=== PATIENT | female | born 1995 | race Caucasian/White ===

== ENCOUNTER → 2023-12-02 11:04 | Outpatient (REF) | payer OTHER, SELFPAY | LOC: PNTC 11:04 | PROVIDERS: ATTENDING PHYSICIAN Obstetrics & Gynecology | DX: Z34.90 Encounter for supervision of normal pregnancy, unspecified, unspecified trimester (principal) | CPT/HCPCS: 76801 ==

== ENCOUNTER → 2023-12-15 13:18 | Outpatient (REF) | payer OTHER, SELFPAY | LOC: PNTC 13:18 | PROVIDERS: ATTENDING PHYSICIAN Obstetrics & Gynecology | DX: Z36.0 Encounter for antenatal screening for chromosomal anomalies (principal); Z36.82 Encounter for antenatal screening for nuchal translucency | CPT/HCPCS: 76801; 76813 ==

== ENCOUNTER → 2024-02-08 10:20 | Outpatient (REF) | payer OTHER, SELFPAY | LOC: PNTC 10:20 | PROVIDERS: ATTENDING PHYSICIAN Obstetrics & Gynecology | DX: O09.819 Supervision of pregnancy resulting from assisted reproductive technology, unspecified trimester (principal) | CPT/HCPCS: 76811 ==

== ENCOUNTER → 2024-03-21 08:30 | Outpatient (REF) | payer OTHER, SELFPAY | LOC: PNTC 08:30 | PROVIDERS: ATTENDING PHYSICIAN Obstetrics & Gynecology | DX: Z36.0 Encounter for antenatal screening for chromosomal anomalies (principal); O09.819 Supervision of pregnancy resulting from assisted reproductive technology, unspecified trimester | CPT/HCPCS: 76816 ==

== ENCOUNTER → 2024-05-03 08:49 | Outpatient (REF) | payer OTHER, SELFPAY | LOC: PNTC 08:49 | PROVIDERS: ATTENDING PHYSICIAN Obstetrics & Gynecology | DX: O09.819 Supervision of pregnancy resulting from assisted reproductive technology, unspecified trimester (principal) | CPT/HCPCS: 76816 ==

== ENCOUNTER → 2024-05-30 10:15 | Outpatient (REF) | payer OTHER, SELFPAY | LOC: PNTC 10:15 | PROVIDERS: ATTENDING PHYSICIAN Obstetrics & Gynecology | DX: O09.819 Supervision of pregnancy resulting from assisted reproductive technology, unspecified trimester (principal) | CPT/HCPCS: 59025; 76816 ==

== ENCOUNTER → 2024-06-06 10:15 | Outpatient (REF) | payer OTHER, SELFPAY | LOC: PNTC 10:15 | PROVIDERS: ATTENDING PHYSICIAN Obstetrics & Gynecology | DX: O09.819 Supervision of pregnancy resulting from assisted reproductive technology, unspecified trimester (principal) | CPT/HCPCS: 59025; 76815 ==

== ENCOUNTER → 2024-06-13 10:23 | Outpatient (REF) | payer OTHER, SELFPAY | LOC: PNTC 10:23 | PROVIDERS: ATTENDING PHYSICIAN Obstetrics & Gynecology | DX: O09.819 Supervision of pregnancy resulting from assisted reproductive technology, unspecified trimester (principal) | CPT/HCPCS: 59025; 76815 ==

== ENCOUNTER → 2024-06-20 10:14 | Outpatient (REF) | payer OTHER, SELFPAY | LOC: PNTC 10:14 | PROVIDERS: ATTENDING PHYSICIAN Obstetrics & Gynecology | DX: O09.819 Supervision of pregnancy resulting from assisted reproductive technology, unspecified trimester (principal) | CPT/HCPCS: 59025; 76815 ==

== ENCOUNTER 2024-06-25 08:50 | Observation (INO) | payer OTHER, SELFPAY ==
[2024-06-25 09:00] VITALS: BP 128/88; BMI 29.9
[2024-06-25] MEDS: LR 1000 IV (09:46)
[2024-06-25] MEDS: ZOFRAN 4 MG IV (09:46)
[2024-06-25] MEDS: IMODIUM 4 MG PO (09:46)
== END 2024-06-25 11:56 | disposition home or self-care (01) ==
LOC: LDRP 08:50
PROVIDERS: ADMITTING PHYSICIAN Obstetrics & Gynecology
DX: R11.2 Nausea with vomiting, unspecified (principal); R19.7 Diarrhea, unspecified; Z3A.40 40 weeks gestation of pregnancy
CPT/HCPCS: 76815; G0378

== ENCOUNTER 2024-06-27 05:15 | Inpatient (IN) | payer OTHER, SELFPAY ==
[2024-06-27] VITALS (8 sets, daily range): BP systolic 97–134; BP diastolic 49–93; BMI 30.8
[2024-06-27 06:15] LABS: Cord ABG Comment CORD BLOOD
[2024-06-27 06:18] LABS: B.E. Cord ABG -8.1 mMOL/L; HCO3 Cord ABG 17.8 mmol/L; PCO2 Cord ABG 37 mmHg; PO2 Cord ABG 32 mmHg; pH Cord ABG 7.29
[2024-06-27 06:22] LABS: B.E. Cord ABG -8.3 mMOL/L; HCO3 Cord ABG 18.4 mmol/L; O2 Saturation % Cord ABG 45.6 %; PCO2 Cord ABG 41 mmHg; PO2 Cord ABG 20 mmHg; pH Cord ABG 7.26
--- NOTE | 2024-06-27 07:19 | W.IMMPOSTOP ---
Surgical Immed Post Op Note
-
Primary Surgeon: Margot Abraham DO
Assisting Surgeon: Iona Bowen RN
Pre-op Diagnosis: IUP at 40+3wks, early labor, NRFHT
Post-op Diagnosis: s/p emergent PLTCS
Procedure Performed: emergent PLTCS
Anesthesia Type: GETA
Specimen / Cultures: cord gases: 7.26, BE -8.3 and 7.29, BE -81; placenta to pathology
Estimated Blood Loss: 530ml
Complications: none
Operative Findings: normal uterus, tubes and ovaries. Male infant, cephalic, no nuchal cord, Apgars 8/9, weight 7#14oz, clear amniotic fluid. Placenta intact with multiple calcifications, no gross e/o abruption.
Due to emergent nature of the surgery, sterility was imperfect and antibiotics were not given prior to incision, so IV antibiotics will be continued 24hrs postoperatively for prophylaxis. Also, counts were not done so abdominal US was done after
fascial closure and did not appear to have any retained products within the peritoneal cavity.
Miles Abraham DO
[2024-06-27] MEDS: DILAUDID 0.25 MG IV (07:25)
[2024-06-27] MEDS: LR 1000 IV (07:31)
[2024-06-27 07:44] LABS: Hemoglobin 12.4 g/dL (12.0-16.0); Mean Corp Hgb Conc. 36.5 g/dL (33.0-37.0); Mean Corpuscular Hgb 34.7 pg (27.0-31.0); Mean Corpuscular Volume 95.2 fL (81.0-99.0); Mean Platelet Volume 13.2 fL (7.4-10.4); Platelet Count 208 10^3/uL (130-400); Red Blood Cell Count 3.57 10^6/uL (4.20-5.40); Red Cell Dist. Width 12.8 % (11.5-14.5); White Blood Cell Count 13.3 10^3/uL (4.8-10.8)
--- NOTE | 2024-06-27 08:03 | W.PN.ANS.POP ---
Anesthesia Post Operative
- Anesthesia Post Op Note
Vital Signs Stable-See Nursing Note: Yes
Airway Patent: Yes
Adequate Pain Control: Yes
Change in Mental Status: No
Current Postoperative Nausea & Vomiting: No
Anesthesia Complications: No
General Anesthetic Recall: No
Unplanned Admission: No
Post Op Hydration Adequate: Yes
[2024-06-27 09:19] LABS: Amphetamines Negative (Negative); Barbiturates Negative (Negative); Benzodiazepines Negative (Negative); Buprenorphine Negative (Negative); Cocaine Negative (Negative); Marijuana Negative (Negative); Methadone Negative (Negative); Methamphetamines Negative (Negative); Opiates Negative (Negative); Phencyclidine Negative (Negative); Tricyclic Antidepressants Negative (Negative)
[2024-06-27] MEDS: PITOCIN 30 UNITS/NSS 500 ML IV (09:54)
[2024-06-27] MEDS: TORADOL 15 MG IV ×2 (12:21→17:33)
[2024-06-27] MEDS: ANCEF 10 IV ×2 (14:06→22:14)
[2024-06-27] MEDS: PRENATAL PLUS PO (14:19)
[2024-06-27] MEDS: PROTONIX 40 MG PO (15:40)
[2024-06-27] MEDS: TUMS CHEWABLE TABLET 400 MG PO (17:56)
[2024-06-28] MEDS: TORADOL 15 MG IV ×2 (00:03→05:55)
[2024-06-28] MEDS: ANCEF 10 IV (05:55)
[2024-06-28 06:49] LABS: Hematocrit 25.8 % (37.0-47.0); Hemoglobin 9.2 g/dL (12.0-16.0); Mean Corp Hgb Conc. 35.7 g/dL (33.0-37.0); Mean Corpuscular Hgb 34.7 pg (27.0-31.0); Mean Corpuscular Volume 97.4 fL (81.0-99.0); Mean Platelet Volume 12.4 fL (7.4-10.4); Platelet Count 149 10^3/uL (130-400); Red Blood Cell Count 2.65 10^6/uL (4.20-5.40); Red Cell Dist. Width 13.2 % (11.5-14.5); White Blood Cell Count 15.9 10^3/uL (4.8-10.8)
[2024-06-28] MEDS: PROTONIX 40 MG PO (08:32)
[2024-06-28] MEDS: FEOSOL 325 MG PO (08:52)
[2024-06-28] MEDS: PRENATAL PLUS 1 TABLET PO (08:52)
[2024-06-28] MEDS: TYLENOL 650 MG PO ×2 (12:19→18:26)
[2024-06-28] MEDS: MOTRIN 600 MG PO ×2 (12:30→18:26)
[2024-06-28 12:38] LABS: Syphilis/T. pallidum Ab Reflex Negative (Negative)
[2024-06-29] MEDS: MOTRIN 600 MG PO ×3 (00:18→12:14)
[2024-06-29] MEDS: TYLENOL 650 MG PO ×3 (00:18→12:13)
[2024-06-29] MEDS: PROTONIX 40 MG PO (08:20)
[2024-06-29] MEDS: SENOKOT-S 1 TABLET PO (08:20)
[2024-06-29] MEDS: PRENATAL PLUS 1 TABLET PO (08:20)
[2024-06-29] MEDS: FEOSOL 325 MG PO (08:20)
--- NOTE | 2024-06-29 09:27 | W.DS.TRANS ---
DC Summary - [employer]
-
Discharge Instructions:
Discharge Diagnosis/Procedures s/p emergent primary low-transverse ;
anemia, asymptomatic
Instructions:
Stand-Alone Forms: [facility] Delivery
Changes to Home Medications: No
Discharge Medications:
DC Medications w/original date entered in [facility] (formerly known as [facility])
vitamin-ferrous fumarate 28 mg iron-folic acid 800 mcg tablet ( Tablet) 1 tab PO DAILY Supplement 06/27/24
acetaminophen 325 mg tablet 650 mg (2 x 325 mg) PO Q4HPRN PRN mild pain #0 tabs 06/29/24
ferrous sulfate 325 mg (65 mg iron) tablet (FeroSul) 325 mg PO DAILY #0 tabs 06/29/24
ibuprofen 600 mg tablet 600 mg PO Q6HPRN PRN cramps #60 tabs 06/29/24
oxycodone 5 mg tablet 5 mg PO Q4HPRN PRN pain rated 6-8/10 #5 tabs 06/29/24
vitamin with calcium no.72-iron 27 mg-folic acid 1 mg tablet (WesTab Plus) 1 tab PO DAILY #0 tabs 06/29/24
sennosides 8.6 mg-docusate sodium 50 mg tablet 1 tab PO DAILYPRN PRN constipation #0 tabs 06/29/24
Home Medication Changes
Pending Results: No
Total time spent discharging patient (in min): 20
--- NOTE | 2024-06-29 11:30 | W.DCSUMMARY ---
Documented by User: Ross Flores MD, Resident 06/29/24 12:42
Discharge Summary
Discharge Data
Date of Admission: 06/27/24
Date of Discharge: 06/29/24
-
Pending Results: No
Hospital Course
Discharge diagnoses:
* S/p emergent primary low-transverse
* Anemia, asymptomatic
Hospital course
29-year-old, G3, P-0-0-2-0 at 40+ 3 weeks presented to Labor and Delivery with painful contractions on 06-27-24. She was found to be in early labor and terminal heart rate deceleration, prolonged for 10 minutes. The patient was urgently taken
to the OR for primary low-transverse section for non-reassuring heart tracing. The went well and there were no significant post-op complications. Labs post-op were notable for anemia. She was feeling well after the procedure
and vitals remained unremarkable. She will be discharged home with pain medications and oral iron for the anemia.
Discharge Plan
-
Patient Disposition: Home (Routine Discharge)
Discharge Diagnosis/Procedures: s/p emergent primary low-transverse ; anemia, asymptomatic
Condition: Good
Stand Alone Forms: [facility] Delivery
Referrals:
Nahun Soriano MD [Active] - in two weeks (please make appt in 2wks for incision check and in 6wks for routine visit)
UNKNOWN,NO INTERVIEW [Family Provider] -
Prescriptions:
New
ferrous sulfate [FeroSul] 325 mg (65 mg iron) Tablet
325 mg PO DAILY Qty: 0 0RF
ibuprofen 600 mg Tablet
600 mg PO Q6HPRN PRN (Reason: cramps) Qty: 60 0RF
WesTab Plus 27 mg iron- 1 mg Tablet
1 tab PO DAILY Qty: 0 0RF
oxycodone 5 mg Tablet
5 mg PO Q4HPRN PRN (Reason: pain rated 6-8/10) Qty: 5 0RF
acetaminophen 325 mg Tablet
650 mg PO Q4HPRN PRN (Reason: mild pain) Qty: 0 0RF
sennosides-docusate sodium 8.6-50 mg Tablet
1 tab PO DAILYPRN PRN (Reason: constipation) Qty: 0 0RF
Continued
vit-iron fum-folic ac [ Tablet] 28 mg iron- 800 mcg Tablet
1 tab PO DAILY
Discharge Orders:
Discharge Patient (As Directed); Ordered 06/29/24
Ordered By: Margot Abraham
Discharge Date and Time
Discharge Date/Time: 06/29/24 13:11
Print Language: CITIZEN OF [place]

Documented by User: Margot Abraham, DO 06/29/24 14:49
Discharge Summary
Discharge Data
Date of Admission: 06/27/24
Date of Discharge: 06/29/24
Discharge Plan
-
Patient Disposition: Home (Routine Discharge)
Discharge Diagnosis/Procedures: s/p emergent primary low-transverse ; anemia, asymptomatic
Condition: Good
Stand Alone Forms: [facility] Delivery
Referrals:
Nahun Soriano MD [Active] - in two weeks (please make appt in 2wks for incision check and in 6wks for routine visit)
UNKNOWN,NO INTERVIEW [Family Provider] -
Prescriptions:
New
ferrous sulfate [FeroSul] 325 mg (65 mg iron) Tablet
325 mg PO DAILY Qty: 0 0RF
ibuprofen 600 mg Tablet
600 mg PO Q6HPRN PRN (Reason: cramps) Qty: 60 0RF
WesTab Plus 27 mg iron- 1 mg Tablet
1 tab PO DAILY Qty: 0 0RF
oxycodone 5 mg Tablet
5 mg PO Q4HPRN PRN (Reason: pain rated 6-8/10) Qty: 5 0RF
acetaminophen 325 mg Tablet
650 mg PO Q4HPRN PRN (Reason: mild pain) Qty: 0 0RF
sennosides-docusate sodium 8.6-50 mg Tablet
1 tab PO DAILYPRN PRN (Reason: constipation) Qty: 0 0RF
Continued
vit-iron fum-folic ac [ Tablet] 28 mg iron- 800 mcg Tablet
1 tab PO DAILY
Discharge Orders:
Discharge Patient (As Directed); Ordered 06/29/24
Ordered By: Margot Abraham
Discharge Date and Time
Discharge Date/Time: 06/29/24 13:11
Print Language: CITIZEN OF [place]
== END 2024-06-29 13:11 | disposition home or self-care (01) | DRG 788 ==
LOC: LDRP 05:15
PROVIDERS: Obstetrics & Gynecology; ADMITTING PHYSICIAN Obstetrics & Gynecology
PROC: 10D00Z1 Extraction of Products of Conception, Low, Open Approach (ICD-10-PCS; 2024-06-27)
DX: O48.0 Post-term pregnancy (principal); Z3A.40 40 weeks gestation of pregnancy; O76 Abnormality in fetal heart rate and rhythm complicating labor and delivery; Z37.0 Single live birth; O99.62 Diseases of the digestive system complicating childbirth; K21.9 Gastro-esophageal reflux disease without esophagitis
CPT/HCPCS: 88307; 74018; 80306; 82803; 85027; 86780; 86850; 86900; 86901; 99406